=== PATIENT | male | born 1970 | race Caucasian/White ===

== ENCOUNTER → 2019-01-16 09:50 | Outpatient (CLI) | payer OTHER ==
[2009-04-13 17:09] VITALS: BMI 32.6
[~2019-01-16 09:50] MED LIST: BUPROPION XL150 MG PO; LISINOPRIL20 MG PO; PROPRANOLOL HCL20 MG PO; TOPROL XL50 MG PO; XANAX1 MG PO; ZOLOFT100 MG PO
--- NOTE | 2019-01-19 12:49 | ST ---
PATIENT:BAO GUSMAN MEDICAL RECORD: [id number] SEX: M [facility] #: ADMISSION DATE: 01/16/19 AGE OF PATIENT: 48 REFERRING PHYSICIAN: INTERPRETING PHYSICIAN: JAMIE DUFF MD DATE OF SERVICE: 01/16/2019 Nuclear Stress Test INDICATIONS: Angina, shortness of breath, hypertension. He was exercised on a standard Christiano protocol for 8 minutes achieving greater than 85% max target heart rate response with 28 mCi of sestamibi injected at peak stress, 9 mCi used previously for rest images. FINDINGS: Gated SPECT reveals preserved ejection fraction at 54% with good wall motioning and thickening and brightening throughout all segments. SPECT Imaging: Cardiolite was used as myocardial perfusion agent. There is reversible ischemia inferiorly, apically, and anteriorly and the inferior and apical ischemia is moderate. The amount of myocardium involved is moderate to large. The anterior defect is mild, the amount of myocardium involved is moderate. Between the 2 defects the amount of myocardium involved is large. OVERALL IMPRESSION: High-risk nuclear stress test, reversible ischemia inferiorly, apically, and anteriorly suggestive of multivessel coronary artery disease. TRANSINT:[id number] Voice Confirmation ID: [id number] DOCUMENT ID: [id number] JAMIE DUFF MD at 1249 CC: EMMANUEL LUCAS [id number] DICTATION DATE: 01/18/19 1544 CANS VACUUM TESTER: 01/19/19 0351 DEP CLI 01/16/19 [place] [id number]
[2019-01-25 17:46] VITALS: BMI 37.3
== END | disposition home or self-care (01) ==
LOC: D.HCCARDIO 09:50
PROVIDERS: ATTEND Internal Medicine Interventional Cardiology
DX: I20.9 Angina pectoris, unspecified (principal)

== ENCOUNTER 2019-01-25 14:06 | Inpatient (IN) | payer OTHER ==
[~2019-01-25] VITALS: Ht 177.8 cm; Wt 118.2 kg
--- NOTE | ~2019-01-25 | HEMODYNAMI ---
PATIENT:BAO GUSMAN MEDICAL RECORD: [id number] : 68 [facility]# [id number] ADMISSION DATE: 01/25/19 Generatedon:01/26/20199:03 Patient name: BAO GUSMAN Patient #: [id number] : 1970 Date of study: 01/26/2019 Page: Of Hemodynamic Procedure Report Patient Data Patient Demographics Procedure consent was obtained First Name: BAO Gender: Male Last Name: UZMA : 1970 Middle Initial: MADELINE Age: 48 year(s) Patient #: [id number] Race: SSN: [id number] Additional ID: [id number] Contact details Address: [address] State: [place] City: [place] Zip code: [address] Admission Admission Data Admission Date: 01/25/2019 Admission Time: 16:06 Arrival Date: 01/25/2019 Arrival Time: 16:06 Admit Source: Other Insurance Payor: Private Room #: D.2117 health insurance [facility] #: [id number] Height (in.): 70.08 BSA: 2.34 (m2) Height (cm.): 178 BMI: 37.24 (kg/m2) Weight (lbs.): 260.15 Weight (kg.): 118 Lab Results Lab Result Date: 01/26/2019 Lab Result Time: 0:00 Biochemistry Name Units Result Min Max BUN mg/dl 13 --(--*-)-- 7 18 Creatinine mg/dl 1 --(--*-)-- 0.6 1.3 eGFR ml/min 84 -*(----)-- 90 120 NONAFRICAN CBC Name Units Result Min Max Hemoglobin g/dl 15.5 --(-*--)-- 13.5 17.5 Procedure Procedure Types Cath Procedure Diagnostic Procedure LHC LH w/Coronaries Sedation Charges Moderate Sedation up to 15 minutes Procedure Description Procedure Date Procedure Date: 01/26/2019 Procedure Start Time: 8:41 Procedure End Time: 8:53 Procedure Staff Name Function Darien Martinez MD Performing Physician Rakel Luna RT Monitor Charu Gonzalez RT Scrub Magda Dietz RN Nurse Procedure Data Cath Procedure Fluoroscopy Diagnostic fluoroscopy Total fluoroscopy Time: 3.6 time: 3.6 min min Diagnostic fluoroscopy Total fluoroscopy dose: 593 dose: 593 mGy mGy Contrast Material Contrast Material Type Amount (ml) Isovue 300 37 Entry Location Entry Primary Successful Side Size Upsize Upsize Entry Closure Bhagat ccessful Closure Location (Fr) 1 (Fr) 2 (Fr) Remarks Device Remarks Radial Right 6 Fr Mechanical artery Short Compression Estimated blood loss: 5 ml Diagnostic catheters Device Type Used For End Catheter Placement DIAGNOSTIC Hamburg 110cm 5 Multi-vessel Fr catheter ([id number]) Angiography Procedure Complications No complications Procedure Medications Medication Administration Route Dosage 0.9% NaCl I.V. 100 ml/hr Oxygen etCO2 Nasal cannula 2 l/min Lidocaine 2% added to field 20 Heparin Flush Bag added to field 2 bags (1000units/500ml NS) Radial Cocktail added to field 1 syringe (Verapamil 2mg/Nitro 400mcg/Heparin 1500units) Versed I.V. 2 mg Fentanyl I.V. 50 mcg Fentanyl I.V. 50 mcg Hemodynamics Rest BSA: 2.34 (m2) HGB: 15.5 (g/dl) O2 Consumption: Estimated: 276.92 (ml/min) O2 Co nsumption indexed: Estimated:118.34 (ml/min/m) Heart Rate: 66 (bpm) Pressure Samples Time Site Value (mmHg) Purpose Heart Use Rate(bpm) 8:47 LV 93/4,21 Snapshot 83 Snapshots Pre Cath Intra NCS Post Cath Vital Signs Time Heart Resp SPO2 etCO2 NIBP (mmHg) Rhythm Pain Sedation Rate (ipm) (%) (mmHg) Status Level (bpm) 8:23:19 65 15 96 36.7 139/89(109) NSR 0 (11) 10(A) , No pain 8:27:29 69 17 95 36 144/89(119) NSR 0 (11) 10(A) , No pain 8:31:41 65 15 97 32.5 135/90(105) NSR 0 (11) 10(A) , No pain 8:35:51 71 11 98 38.6 137/89(104) NSR 0 (11) 10(A) , No pain 8:40:05 69 10 98 34.8 133/79(110) NSR 0 (11) 10(A) , No pain 8:44:17 75 11 96 34 140/79(112) NSR 0 (11) 10(A) , No pain 8:49:16 74 12 97 30.2 Measuring NSR 0 (11) 10(A) , No pain 8:49:22 75 13 97 30.2 134/83(114) NSR 0 (11) 10(A) , No pain Medications Time Medication Route Dose Verified Delivered Reason Notes Ef fectiveness by by 8:27:39 0.9% NaCl I.V. 100 Darien Magda used for ml/hr Michelle Dietz wood window and door craftsman 8:27:45 Oxygen etCO2 2 l/min Darien Magda used for Nasal Michelle Dietz procedure cannula RN 8:27:50 Lidocaine 2% added 20ml Darien Darien for local to vial Michelle Martinez MD anesthetic field 8:27:54 Heparin Flush added 2 bags Darienjazmine Ledezma used for Bag to Michelle Martinez MD procedure (1000units/500ml field NS) 8:28:01 Radial Cocktail added 1 Darienjazmine Ledezma used for (Verapamil to syringe Michelle Martinez MD procedure 2mg/Nitro field 400mcg/Heparin 1500units) 8:32:50 Versed I.V. 2 mg Darien Magda for Michelle Dietz sedation RN 8:32:59 Fentanyl I.V. 50 mcg Darien Magda for Michelle Dietz sedation RN 8:41:25 Fentanyl I.V. 50 mcg Darien Magda for Michelle Dietz sedation boilermaker helper Log Time Note 7:52:35 Diagnostic Cath Status : Elective 7:54:04 Lab Result : Creatinine 1 mg/dl 7:54:04 Lab Result : BUN 13 mg/dl 7:54:04 Lab Result : Hemoglobin 15.5 g/dl 7:54:04 Lab Result : eGFR NONAFRICAN 84 ml/min 7:54:08 Admit Source: Other 7:54:12 Arrival Date: 01/25/2019 4:06:00 PM 7:56:32 Insurance Payor : Private health insurance 7:57:31 Patient Height : 70.08 inches 7:57:42 Patient Weight : 260.15 lbs 7:58:05 Informed consent obtained and on chart 8:00:48 Rakel CARRILLO(R) sent for patient. Start room use. 8:21:54 Time tracking: Regular hours (M-F 7:00 - 5:00) 8:21:58 Plan of Care:Hemodynamics will remain stable., Cardiac rhythm will remain stable., Comfort level will be maintained., Respiratory function will remain adequate., Patient/ family verbilizes understanding of procedure., Procedure tolerated without complication., Recovers from procedure without complications.. 8:22:04 Patient received from Med II to CCL 2 Alert and oriented. Tansferred to table in Supine position. 8:22:05 Warm blankets applied, and gerard hugger turned on for patient comfort. 8:22:05 Correct patient and procedure confirmed by team. 8:22:06 ECG and BP/O2 sat monitors applied to patient. 8:22:06 Vital chart was started 8:22:07 Baseline sample Acquired. 8:22:10 Rhythm: sinus rhythm 8:22:11 Full Disclosure recording started 8:22:15 H&P Date Dictated: 01/26/2019 ER History on chart., New H&P dictated by physician.. 8:22:17 Pre-procedure instructions explained to patient. 8:22:17 Pre-op teaching completed and patient verbalized understanding. 8:22:18 Family in waiting room. 8:22:21 Patient NPO since Midnight. 8:22:22 Is the patient allergic to Iodine/contrast media? No. 8:22:24 Was the patient premedicated? No 8:22:25 Is patient on blood thinner?Yes 8:22:27 ACC The patient was administered the following blood thiners within the last 24 hours: ACCPlavix 8:22:29 Patient diabetic? No. 8:22:33 Previous problem with sedation/anesthesia? No ? 8:23:18 Snore? Yes 8:23:19 Sleep apnea? Yes 8:23:20 Deviated septum? No 8:23:20 Opens mouth fully? Yes 8:23:21 Sticks out tongue? Yes 8:24:15 Airway obstruction? No ? 8:24:17 Dentures? No ? 8:24:28 Pre procedure: right dorsailis pedis pulse 2+ Normal; easily identifiable; not easily obliterated 8:24:32 Patient pain scale 0/10 ?. 8:25:00 IV patent on arrival in right antecubital with 0.9% NaCl at [facility]. 8:25:59 Lab results completed and on chart. 8:26:04 Stress Test: no; N/A ? 8:27:39 0.9% NaCl 100 ml/hr I.V. was administered by Magda Dietz RN; used for procedure; Verbal order read back and verified. 8:27:45 Oxygen 2 l/min etCO2 Nasal cannula was administered by Magda Dietz RN; used for procedure; Verbal order read back and verified. 8:27:50 Lidocaine 2% 20ml vial added to field was administered by Darien Martinez MD; for local anesthetic; Verbal order read back and verified. 8:27:54 Heparin Flush Bag (1000units/500ml NS) 2 bags added to field was administered by Darien Martinez MD; used for procedure; Verbal order read back and verified. 8:28:01 Radial Cocktail (Verapamil 2mg/Nitro 400mcg/Heparin 1500units) 1 syringe added to field was administered by Darien Martinez MD; used for procedure; Verbal order read back and verified. 8:29:29 Risk of Mortality: 2.2 8:29:33 Risk of blood transfusion: 1.0 8:29:38 Risk of SAUNDRA: 4.2 8:29:44 Right Radial & Right Groin area was prepped with chlora-prep and draped in sterile fashion 8:29:45 Alarms reviewed by R. N. 8:29:45 Sharps counted by scrub and verified by R.N. 8:29:46 Physician arrived 8::47 --------ALL STOP TIME OUT------ 8:29:47 Final Timeout: patient, procedure, and site verified with staff and physician. All members of the team are in agreement. 8:29:49 Right Radial & Right Groin site verified by team. 8:29:52 Fire Safety Assessment: A--An alcohol-based skin anteseptic being used preoperatively., C--Open oxygen or nitrous oxide is being used., D--An ESU, laser, or fiber-optic light is being used. 8:29:55 Physical assessment completed. ASA score P 2 - A patient with mild systemic disease as per Darien Martinez MD. 8:30:01 2) 60-89 Mildly reduced kidney function, and other findings (as for stage 1) point to kidney disease. 8:30:16 Maximum allowable contrast dose (3.7 X eGFR X 0.75)233 ml. 8:30:22 Sedation plan: IV Moderate Sedation Medication:Versed, Fentanyl 8:30:24 Use device set Radial Dx or PCI 8:30:25 ACIST Syringe (45456) opened to sterile field. 8:30:25 Medline Cath Pack ([id number]) opened to sterile field. 8:30:26 Bag Decanter (2002S) opened to sterile field. 8:30:26 ACIST Hand Control (38110) opened to sterile field. 8:30:26 ACIST Manifold (96151) opened to sterile field. 8:30:27 Tegaderm 4 x 4 (1626W) opened to sterile field. 8:30:28 MBrace Wrist Support ([id number]) opened to sterile field. 8:30:30 SHEATH 6FR RAIN (6072159) opened to sterile field. 8:30:30 EMERALD Guide Wire (685-967) opened to sterile field. 8:32:50 Versed 2 mg I.V. was administered by Magda Dietz RN; for sedation; Verbal order read back and verified. 8:32:59 Fentanyl 50 mcg I.V. was administered by Magda Dietz RN; for sedation; Verbal order read back and verified. 8:41:22 Procedure started. 8:41:25 Fentanyl 50 mcg I.V. was administered by Magda Dietz RN; for sedation; Verbal order read back and verified. 8:41:26 Local anesthetic to right radial artery with Lidocaine 2% by Darien Martinez MD.INITIAL ACCESS ONLY 8:41:35 A 6 Fr Short sheath was inserted into the Right Radial artery 8:42:22 A DIAGNOSTIC Hamburg 110cm 5 Fr catheter (427301) was advanced over the wire and used for Multi-vessel Angiography. 8:44:06 Zero performed for pressure channel P1 8:44:41 Zero performed for pressure channel P1 8:44:48 Zero performed for pressure channel P1 8:45:53 GLIDE WIRE ANGLE 260cm (JR4776) opened to sterile field. 8:46:03 TORQUE DEVICE PLASTIC .038 ( TD01) opened to sterile field. 8:46:51 LV hemodynamics recorded. 8:46:55 LV gram done using MUNOZ 8:46:59 Injector settings: Ml/sec: 5, Volume: 15, 8:47:22 EF : 60 % 8:47:46 RCA angiography performed. 8:47:52 Injector settings: Ml/sec: 3, Volume: 6, 8:48:02 Catheter removed. 8:48:23 GUIDE 6FR XBLAD 3.5 catheter (80675320) opened to sterile field. 8:48:45 6 Fr xblad 3.5 guide catheter was inserted over the wire 8:50:29 LCA angiography performed. 8:50:32 Injector settings: Ml/sec: 3, Volume: 6, 8:50:35 Catheter removed. 8:50:56 ZEPHYR LARGE TR BAND (463756) opened to sterile field. 8:51:14 Sheath removed intact; hemostasis achieved with Mechanical Compression to the Right Radial artery. 8:51:15 Procedure ended.(Physican Out) 8:51:26 Fluoroscopy time 03.60 minutes. 8:51:36 Flurop Dose total: 593 8:51:36 Fluoroscopy dose: 593 mGy 8:51:41 Dose Area Product 26498 mGy/cm. 8:51:47 Contrast amount:Isovue 300 37ml. 8:51:50 Maximum allowable dose exceeded? No. 8:51:51 Sharps counted by scrub and verified by R.N. 8:51:56 [place] band inflated with 10cc of air. 8:51:57 Insertion/operative site no bleeding no hematoma. 8:52:05 Post right radial artery:stable 8:52:06 Post Procedure Pulses reassessed and unchanged 8:52:09 Post procedure rhythm: unchanged. 8:52:12 Estimated blood loss: 5 ml 8:52:14 Post procedure instruction explained to patient.Patient verbalizes understanding. 8:52:14 Patient needs reinforcement of post procedure teaching. 8:52:22 Procedure type changed to Cath procedure, Diagnostic procedure, LHC, LHC w/Coronaries, Sedation Charges, Moderate Sedation up to 15 minutes 8:52:24 Procedure and supply charges have been captured, reviewed, submitted and are correct. 8:52:28 Procedure Complication : No complications 8:52:31 Vital chart was stopped 8:52:34 [facility] Findings: mild to moderate CAD (<70%) 8:52:35 Operative report dictated upon procedure completion. 8:52:36 See physician's report for complete and final results. 8:53:02 Report given to [facility]. 8:53:05 Patient transfered to [facility] with Stretcher. 8:53:07 Procedure ended. 8:53:07 Full Disclosure recording stopped 8:53:13 End room use (Document Last) Device Usage Item Name Manufacture Quantity Catalog Hospital Part Current Minima l Lot# / Number Charge Number Stock Stock Serial# Code ACIST Acist 1 88141 [id number] 219476 150450 20 Syringe Medical (38419) Systems Inc Medline Medline 1 [id number] 932981 72342 887096 5 Cath Pack ([id number]) Bag Microtek 1 2001S 022156 84654 333467 5 Decanter Medical Inc. () ACIST Hand Acist 1 37347 041890 312409 651052 5 Control Medical (28941) Systems Inc ACIST Acist 1 96871 363820 383509 788958 5 Manifold Medical (75046) Systems Inc Tegaderm 4 3M 1 1626W 844476 569125 916975 5 x 4 (1626W) MBrace Advanced 1 140-0250-00 841619 07179 843317 5 Wrist Vascular Support Dynamics ([id number]) SHEATH 6FR Cardinal 1 [id number] 209938 0314937 035385 5 RAIN Health (1711364) EMERALD Cardinal 1 502-455 330972 696387 423940 5 Guide Wire [facility] (502455) DIAGNOSTIC Terumo 1 40-3093 196334 048768 813585 5 Hamburg 110cm 5 Fr catheter (792786) GLIDE WIRE Terumo 1 VD4138 767479 145161 669947 5 ANGLE 260cm (WC0920) TORQUE Hewitt 1 TD01 041893 936818 733510 5 DEVICE Scientific PLASTIC .038 ( TD01) GUIDE 6FR Cardinal 1 30548054 165689 859108 663191 10 XBLAD 3.5 Health catheter (07027351) ZEPHYR Cardinal 1 363503 201293 7907864 893056 5 LARGE TR Health BAND (291341) Signature Audit [place]ois Stage Time Signature Unsigned Intra-Procedure 01/26/2019 Rakel Luna 9:01:36 AM RT(R) Intra-Procedure 01/26/2019 Magda Dietz 9:03:20 AM RN Intra-Procedure 01/26/2019 Darien Martinez 9:03:48 AM MD Signatures Performing Physician : Signature : Darien Martinez MD Date : Time : Monitor : Rakel Luna RT Signature : Date : Time : Nurse : Magda Dietz RN Signature : Date : Time : [address] [place] [address]
[2019-01-25 14:50] LABS: BASOPHILS 0.5 % (0-2); EOSINOPHILS 3.7 % (0-7); HEMATOCRIT 45.3 % (42.0-54.0); HEMOGLOBIN 15.5 g/dL (13.5-17.5); IMMATURE GRANULOCYTES 0.5 % (0-5); LYMPHOCYTES 28.2 % (15-50); MCH 27.8 pg (26.0-34.0); MCHC 34.2 g/dL (31.0-37.0); MCV 81.3 fL (80.0-100.0); MEAN PLATELET VOLUME 9.3 fL (7.4-10.4); MONOCYTES 9.1 % (2-11); PLATELET COUNT 225 10x3/uL (130-400); RBC 5.57 10x6/uL (4.20-6.10); RDW 15.4 % (11.5-14.5); WBC 6.2 10x3/uL (4.8-10.8)
[2019-01-25 15:06] LABS: APTT 29.8 SECONDS (22.8-39.4); CALC OSMOLALITY 279 mosm/kg (275-300); CALCIUM 8.8 mg/dL (8.5-10.1); CARBON DIOXIDE 26.4 mmol/L (21.0-32.0); CHLORIDE - SERUM 106 mmol/L (98-107); GLUCOSE 85 mg/dL (74-106); INR 1.05 (0.85-1.17); POTASSIUM - SERUM 3.9 mmol/L (3.5-5.1); PROTIME 13.2 SECONDS (11.6-15.0); SODIUM 141 mmol/L (136-145); UREA NITROGEN 13 mg/dL (7-18); eGFR NON AFRICAN AMERICAN 84 mL/min (90-120)
[2019-01-25 15:20] LABS: ALBUMIN 3.7 g/dL (3.4-5.0); ALKALINE PHOSPHATASE 72 U/L (46-116); ALT (SGPT) 38 U/L (10-68); BILIRUBIN - TOTAL 0.67 mg/dL (0.2-1.3); CKMB 0.5 U/L (0.0-3.6); CREATINE KINASE 104 UL (21-232); MAGNESIUM - SERUM 1.8 mg/dL (1.8-2.4); PROTEIN - SERUM 7.6 g/dL (6.4-8.2)
[2019-01-25 15:23] LABS: TROPONIN-I < 0.017 ng/mL (0.000-0.060)
--- NOTE | 2019-01-25 16:37 | NUR ---
TRANSFER FROM ER BY W/C. RANJANINTED TO ROOM. CALL LIGHT IN REACH. WILL CONT. PLAN OF CARE.
[2019-01-25] MEDS ORDERED: ZOLOFT100 MG PO (16:47)
[2019-01-25] MEDS ORDERED: LISINOPRIL20 MG PO (16:47)
[2019-01-25] MEDS ORDERED: PROPRANOLOL HCL20 MG PO (16:47)
[2019-01-25] MEDS ORDERED: BUPROPION XL150 MG PO (16:48)
[2019-01-25] MEDS ORDERED: XANAX1 MG PO (16:49)
[2019-01-25 17:46] VITALS: BP 125/87; Ht 177.8 cm; Wt 118.2 kg
--- NOTE | 2019-01-25 19:30 | NUR ---
RECEIVED BEDSIDE REPORT. PATIENT IS ALERT AND ORIENTED. RESTING COMFORTABLY IN BED. RESPIRATIONS ARE EVEN AND UNLABORED. NO S/S OF DISTRESS. NO C/O PAIN. CALL LIGHT WITHIN REACH. WILL CPOC.
--- NOTE | 2019-01-25 20:21 | NUR ---
PAGED DR. OLGUIN TO ASK TO RESTART HOME MEDS. ORDERS GIVEN TO RESTART HOME MEDS.
[2019-01-25 20:38] VITALS: BP 102/69
[2019-01-26] VITALS: BP 127/82
[2019-01-26 04:30] VITALS: BP 123/75
[2019-01-26 06:31] LABS: BASOPHILS 0.7 % (0-2); EOSINOPHILS 3.4 % (0-7); HEMATOCRIT 44.4 % (42.0-54.0); IMMATURE GRANULOCYTES 0.5 % (0-5); LYMPHOCYTES 27.2 % (15-50); MCH 27.5 pg (26.0-34.0); MCHC 33.8 g/dL (31.0-37.0); MCV 81.3 fL (80.0-100.0); MEAN PLATELET VOLUME 9.6 fL (7.4-10.4); MONOCYTES 8.9 % (2-11); NEUTROPHILS 59.3 % (40-80); PLATELET COUNT 242 10x3/uL (130-400); RBC 5.46 10x6/uL (4.20-6.10); RDW 15.5 % (11.5-14.5); WBC 5.8 10x3/uL (4.8-10.8)
[2019-01-26 06:41] LABS: CALC OSMOLALITY 282 mosm/kg (275-300); CALCIUM 8.4 mg/dL (8.5-10.1); CARBON DIOXIDE 27.3 mmol/L (21.0-32.0); CHLORIDE - SERUM 107 mmol/L (98-107); GLUCOSE 88 mg/dL (74-106); POTASSIUM - SERUM 4.3 mmol/L (3.5-5.1); SODIUM 142 mmol/L (136-145); UREA NITROGEN 15 mg/dL (7-18); eGFR NON AFRICAN AMERICAN 84 mL/min (90-120)
--- NOTE | 2019-01-26 08:00 | NUR ---
PRE-OPS GIVEN. TO HOSPITAL COOK BY BED.
--- NOTE | 2019-01-26 08:52 | HP ---
PATIENT: BAO GUSMAN MEDICAL RECORD: [id number] ACCOUNT: [id number] LOCATION:.[facility].2117 : [birth year] ADMISSION DATE: 01/25/19 PCP: EMMANUEL LUCAS HISTORY AND PHYSICAL EXAMINATION DIAGNOSES: 1. Unstable angina. 2. Abnormal nuclear stress test. 3. Atrial fibrillation. HISTORY OF PRESENT ILLNESS: This is a gentleman who has been having chest pain, was risk stratified by us with a nuclear stress test that was abnormal. He was set for cardiac catheterization in 2 days. He has severe episode of chest discomfort at rest, presented to [facility], was in atrial fibrillation with rapid response. He is pain free now, is back in sinus rhythm now. Troponin is pending. Initial troponin at [place] was normal. PHYSICAL EXAMINATION: CONSTITUTIONAL/GENERAL APPEARANCE: Well nourished, well developed, appears stated age. EYES: Lids and conjunctivae noninjected. No discharge. No pallor. ENT: Lips within normal limit. No cyanosis. No pallor. NECK: Carotid arteries, bilateral normal upstroke. No bruits. No thrills. No jugular venous pressure or distention. CERVICAL LYMPH NODES: Nontender. Nonenlarged. THYROID: Not enlarged. No nodules. CARDIOVASCULAR: Precordial exam, nondisplaced. No heaves or pericardial thrills. Rate and rhythm, regular. Heart sounds, normal S1, normal S2. No S3, no gallop, no rub. Systolic murmur, not heard. Diastolic murmur, not heard. RESPIRATORY: Respiratory effort, unlabored. Normal curvature. No thoracic deformity. No chest wall tenderness. Percussion, resonant. Auscultation, clear. No wheezes, no rales, no rhonchi. ABDOMEN: Soft, nondistended, nontender. No abdominal pain, no vomiting and normal appetite. MUSCULOSKELETAL: No joint tenderness, normal gait, normal tone. SKIN: Warm and dry. OVERALL IMPRESSION: Unstable angina, now with dysrhythmias class IV anginal symptomatology. We will proceed with coronary angiography in the a.m. We will start him on Lopressor 25 mg b.i.d. today as well. TRANSINT:[id number] Voice Confirmation ID: [id number] DOCUMENT ID: [id number] JAMIE DUFF MD at 0852 CC: [id number] DICTATION DATE: 01/25/19 1543 MEDICAL DIRECTOR/HEAD TEAM PHYSICIAN: 01/25/[address] [facility] [address] [place] [id number]
[2019-01-26 09:08] VITALS: BP 137/82
--- NOTE | 2019-01-26 09:19 | NUR ---
BACK FROM SECOND LANGUAGE TUTOR. VS WNL. RIGHT WRSIT STABLE WITH TR BAND INTACT. WILL MONITOR.
--- NOTE | 2019-01-26 09:30 | NUR ---
UPON ADMIT, PATIENT HAS NOT HAD A FLU SHOT. ORDERED.
[2019-01-26] MEDS ORDERED: TOPROL XL50 MG PO (09:34)
--- NOTE | 2019-01-26 11:17 | NUR ---
TR BAND DCD WITHOUT BLEEDING OR HEMATOMA NOTED. IV AND TELEMETRY DCD. DC PLANS GIVEN. UNDERSTANDING VOICED. ESCORTED TO CAR BY W/C.
--- NOTE | 2019-01-26 16:54 | MORECARE ---
CASE MANAGEMENT DISCHARGE SUMMARY PATIENT: BAO GUSMAN UNIT: [id number] ADM DATE: 01/25/19 AGE: 48 : 68 SEX: M ROOM/BED: D.7941 AUTHOR: SALMA,DOC PHYSICIAN: REFERRING PHYSICIAN: JAMIE DUFF MD DATE OF SERVICE: 01/26/19 Discharge Plan Patient Name: BAO GUSMAN Facility[facility]:[place] : 1970 Planned Disposition: Home Anticipated Discharge Date: 01/26/19 Discharge Date: 01/26/2019 Expected LOS: 1 Initial Reviewer: [email or web address] Initial Review Date: 01/26/2019 Generated: 01/26/19 5:54 pm Comments DCP- Discharge Planning Updated by [email or web address]: Shaji Sweeney on 01/26/19 3:[address] Patient Name: BAO GUSMAN Admission Status: Elective Accout number: [id number] Admission Date: 01-25-2019 : 1970 Admission Diagnosis: Attending: CAROLE DUFF Current LOS: 1 Anticipated DC Date: 01-26-2019 Planned Disposition: Home Primary Insurance: [facility] Discharge Planning Comments: CM MET WITH PT IN ROOM TO DISCUSS DISCHARGE PLANNING AND NEEDS. PT REPORTS LIVING AT HOME INDEPENDENTLY WITH HIS PARENTS. PT HAS NO MEDICAL EQUIPMENT AND NO OUTSIDE SERVICES ASSISTING IN THE HOME. CM DISCUSSED AVAILABILITY OF HOME HEALTH, REHAB SERVICES AND MEDICAL EQUIPMENT. PT DENIES DISCHARGE NEEDS, REPORTS HIS VILMA IS HERE TO PICK HIM UP FOR DISCHARGE HOME TODAY. [employer] SOCIAL WORKER NURSE NOTIFIED. Imaging Technician: Shaji Sweeney DCPIA - Discharge Planning Initial Assessment Updated by [email or web address]: Shaji Sweeney on 01/26/19 4:50 pm * Is the patient Alert and Oriented? Yes * How many steps to enter\exit or inside your home? 0-0 10-I * PCP DR LUCAS IN [facility] * Pharmacy [facility] * Preadmission Environment Home with Family * ADLs Independent * Equipment None * Other Equipment NO MEDICAL EQUIPMENT PROVIDER PREFERENCE * List name and contact numbers for known caregivers / representatives who currently or will assist patient after discharge: VILMA RAY, * Verbal permission to speak to the caregivers and representatives has been obtained from the patient. Yes * Community resources currently utilized None * Please name any agencies selected above. NONE * Additional services required to return to the preadmission environment? No * Can the patient safely return to the preadmission environment? Yes * Has this patient been hospitalized within the prior 30 days at any hospital? No Patient Name: BAO GUSMAN Page [id number] at 1654 All edits/amendments must be made on the electronic document DICTATION DATE: 01/26/191653 CUSHION INSTALLER: ILEANA 01/26/191653 RPT#: [id number] DC DATE:01/26/19 STATUS: DIS IN [facility] [address] [place] [address] END OF REPORT
--- NOTE | 2019-01-30 09:28 | OP ---
PATIENT NAME: BAO GUSMAN MEDICAL RECORD: [id number] :[birth year] LOCATION:D.M2 D.2117 ADMISSION DATE:01/25/19 SURGEON: JAMIE DUFF MD DATE OF OPERATION: 01/26/2019 PROCEDURES: 1. Left heart catheterization. 2. Selective coronary angiography. 3. Left ventriculogram. INDICATION: Angina, paroxysmal atrial fibrillation, and abnormal nuclear stress test. PROCEDURE IN DETAIL: After informed consent was obtained and after a detailed description of risks, benefits as well as alternative therapies, the patient elected to proceed with angiogram and heart catheterization. The right radial area was prepped and draped in normal sterile fashion. Right radial artery was cannulated via modified Seldinger technique with placement of 5-Upper Sorbian sheath. All catheters exchanged through this sheath. FINDINGS: Left ventriculogram was performed in standard 30-degree MUNOZ view, reveals good cardiac wall motion throughout all segments. Overall ejection fraction estimated 60%. SELECTIVE CORONARY ANGIOGRAPHY: Left main, left anterior descending, left circumflex, and right coronary artery are all smooth-walled vessels with no angiographic evidence of coronary artery disease. OVERALL IMPRESSION: 1. No angiographic evidence of coronary artery disease. 2. Normal left heart pressures. 3. Normal left ventricular systolic function. Chest pain is not secondary to ischemic heart disease. Center medical management on treatment of the dysrhythmia. TRANSINT:[id number] Voice Confirmation ID: [id number] DOCUMENT ID: [id number] JAMIE DUFF MD at 0928 CC: [id number] DICTATION DATE: 01/26/19 0856 BOOSTER OPERATOR: 01/26/19 1053 DIS IN 01/26/19 [facility] [address] [place] [address]
--- NOTE | 2019-01-30 09:28 | DS ---
PATIENT:BAO GUSMAN :68 MEDICAL RECORD: [id number] DISCHARGE SUMMARY ADMISSION DATE: 01/25/19 DISCHARGE DATE: 01/26/19 DIAGNOSES: 1. Angina. 2. Hypertension. 3. Paroxysmal atrial fibrillation. HOSPITAL COURSE: Mr. Gusman presents with anginal symptomatology in conjunction with atrial fibrillation. Previously he underwent nuclear stress testing which was abnormal; however, he underwent cardiac catheterization, which was normal. He was treated with the addition of Lopressor 50 mg a day ER to treat the atrial fibrillation and hypertension. He will follow up with [facility] in 1 month. TRANSINT:[id number] Voice Confirmation ID: [id number] DOCUMENT ID: [id number] JAMIE DUFF MD at 0928 CC: [id number] DICTATION DATE: 01/26/19 0855 FITNESS FLOOR ATTENDANT: 01/26/19 2315 DIS IN 01/26/19 [id number] [place] [address]
== END 2019-01-26 11:18 | disposition home or self-care (01) | DRG 287 ==
LOC: D.ER 14:06 → D.M2 16:06
PROVIDERS: Family Medicine; ADMIT Internal Medicine Interventional Cardiology; ATTEND Internal Medicine Interventional Cardiology
PROC: B2111ZZ Fluoroscopy of Multiple Coronary Arteries using Low Osmolar Contrast (ICD-10-PCS; principal; 2019-01-25)
PROC: B2151ZZ Fluoroscopy of Left Heart using Low Osmolar Contrast (ICD-10-PCS; 2019-01-25)
PROC: 4A023N7 Measurement of Cardiac Sampling and Pressure, Left Heart, Percutaneous Approach (ICD-10-PCS; 2019-01-25)
DX: I48.0 Paroxysmal atrial fibrillation (principal); I10 Essential (primary) hypertension